=== PATIENT | female | born 1940 | race Caucasian/White ===

== ENCOUNTER 2021-02-03 10:01 | Emergency (ER) | payer MEDICARE, OTHER ==
[~2021-02-03] VITALS: Ht 160 cm; Wt 63.5 kg
[2021-02-03] MEDS ORDERED: ELIQUIS5 MG PO (11:22)
[2021-02-03] MEDS ORDERED: VITAMIN C500 M6 PO (11:23)
[2021-02-03] MEDS ORDERED: VITAMIN D3400 UNI2 PO (11:23)
[2021-02-03] MEDS ORDERED: VITAMIN B-122500 MCG SL (11:24)
[2021-02-03] MEDS ORDERED: FE TABS325 MG PO (11:25)
[2021-02-03] MEDS ORDERED: FOLIC ACID1 MG PO (11:26)
[2021-02-03] MEDS ORDERED: FUROSEMIDE20 MG PO (11:26)
[2021-02-03] MEDS ORDERED: PROTONIX40 M2 PO (11:27)
[2021-02-03] MEDS ORDERED: KAPSPARGO SPRIN25 MG PO (11:27)
[2021-02-03] MEDS ORDERED: POTASSIUM CHLO10 MEQ PO (11:28)
[2021-02-03] MEDS ORDERED: PYRIDOXINE25 MG PO (11:29)
[2021-02-03] MEDS ORDERED: CALCIUM600 M1 PO (11:30)
[2021-02-03] MEDS ORDERED: REMERON SOLTAB15 MG PO (11:31)
[2021-02-03] MEDS ORDERED: ULTRAM50 MG PO (11:32)
[2021-02-03 11:52] VITALS: BP 107/65
== END 2021-02-03 12:05 | disposition home or self-care (01) ==
LOC: ED 10:01
DX: S90.31XA Contusion of right foot, initial encounter (principal); S90.121A Contusion of right lesser toe(s) without damage to nail, initial encounter; S76.911A Strain of unspecified muscles, fascia and tendons at thigh level, right thigh, initial encounter; I48.91 Unspecified atrial fibrillation; K21.9 Gastro-esophageal reflux disease without esophagitis; W22.03XA Walked into furniture, initial encounter; Z86.14 Personal history of Methicillin resistant Staphylococcus aureus infection; Z98.84 Bariatric surgery status; Z96.651 Presence of right artificial knee joint; Z87.81 Personal history of (healed) traumatic fracture

== ENCOUNTER 2021-05-24 15:31 | Emergency (ER) | payer MEDICARE, OTHER ==
[2021-05-24] VITALS (29 sets, daily range): BP systolic 62–92; BP diastolic 15–55
[~2021-05-24] VITALS: Ht 160 cm; Wt 62.3 kg
[~2021-05-24 15:31] MED LIST: CALCIUM600 M1 PO; ELIQUIS5 MG PO; FE TABS325 MG PO; FOLIC ACID1 MG PO; FUROSEMIDE20 MG PO; KAPSPARGO SPRIN25 MG PO; POTASSIUM CHLO10 MEQ PO; PROTONIX40 M2 PO; PYRIDOXINE25 MG PO; REMERON SOLTAB15 MG PO; ULTRAM50 MG PO; VITAMIN B-122500 MCG SL; VITAMIN C500 M6 PO; VITAMIN D3400 UNI2 PO
[2021-05-24 18:40] LABS: BILIRUBIN, TOTAL 1.6 mg/dL (0.0-1.4); CREATININE 2.4 mg/dL (0.5-1.0); POTASSIUM 4.9 mmol/l (3.5-5.1)
[2021-05-24 18:44] LABS: INTERNATIONAL NORMALIZED RATIO 1.2 RATIO (0.7-1.3); PROTHROMBIN TIME 12.7 SECONDS (9.0-12.5)
[2021-05-24 20:03] LABS: C-REACTIVE PROTEIN 29.3 mg/dL (0-0.9)
[2021-05-24 20:11] LABS: HEMATOCRIT 20.9 % (37.0-47.0); IMMATURE GRANULOCYTES 32.1 % (0.0-5.0); MEAN CELL VOLUME 89.7 fL CALC (80.0-100.0); MEAN CORPUSCULAR HGB CONC 33.5 g/dL CAL (32.0-36.0); PLATELET COUNT 594 thou/uL (130-400); RED BLOOD COUNT 2.33 mill/uL (4.20-5.60); RED CELL DISTRI WIDTH 18.3 % (11.5-15.5)
[2021-05-24 20:12] LABS: BAND 13 % (0-8)
[2021-05-24 20:13] LABS: IMMATURE CELLS 18 %
[2021-05-24 20:14] LABS: MANUAL DIFFERENTIAL YES
[2021-05-25] VITALS (15 sets, daily range): BP systolic 74–101; BP diastolic 34–42
== END 2021-05-25 02:00 | disposition short-term general hospital (02) ==
LOC: ED 15:31
PROVIDERS: Nurse Practitioner
DX: M79.81 Nontraumatic hematoma of soft tissue (principal); M60.9 Myositis, unspecified; N17.9 Acute kidney failure, unspecified; D72.829 Elevated white blood cell count, unspecified; I11.0 Hypertensive heart disease with heart failure; I50.9 Heart failure, unspecified; K21.9 Gastro-esophageal reflux disease without esophagitis; I48.0 Paroxysmal atrial fibrillation; Z85.42 Personal history of malignant neoplasm of other parts of uterus; Z79.01 Long term (current) use of anticoagulants; Z98.84 Bariatric surgery status; Z86.14 Personal history of Methicillin resistant Staphylococcus aureus infection; Z87.81 Personal history of (healed) traumatic fracture

== ENCOUNTER 2021-06-12 10:10 | Emergency (ER) | payer MEDICARE, OTHER ==
[2021-06-12] VITALS (7 sets, daily range): BP systolic 105–118; BP diastolic 56–63
[~2021-06-12] VITALS: Ht 160 cm; Wt 69.3 kg
[2021-06-12 11:11] LABS: MEAN CORPUSCULAR HGB 29.9 pG CALC (26.0-32.0); MEAN CORPUSCULAR HGB CONC 29.2 g/dL CAL (32.0-36.0); PLATELET COUNT 602 thou/uL (130-400); RED BLOOD COUNT 3.51 mill/uL (4.20-5.60); RED CELL DISTRI WIDTH 23.9 % (11.5-15.5)
[2021-06-12 11:24] LABS: HEMATOCRIT 35.9 % (37.0-47.0); HEMOGLOBIN 10.5 g/dl (12.0-16.0); IMMATURE GRANULOCYTES 13.5 % (0.0-5.0); MEAN CELL VOLUME 102.3 fL CALC (80.0-100.0)
[2021-06-12 11:25] LABS: MANUAL DIFFERENTIAL YES
[2021-06-12 11:32] LABS: ALBUMIN 3.3 g/dL (3.2-5.0); ALKALINE PHOSPHATASE 96 u/l (38-126); CHLORIDE 107 mmol/l (95-108); SGOT/AST 52 u/l (9-36); SODIUM 140 mmol/l (137-146); TOTAL PROTEIN 6.5 g/dL (6.3-8.2)
[2021-06-12 11:49] LABS: ANION GAP 10 (6-22 (CALC)); BUN 13 mg/dL (8-23); BUN/CREATININE RATIO 19 (12-20 (CALC)); CARBON DIOXIDE 27 mmol/l (22-30); CREATININE 0.7 mg/dL (0.5-1.0); GFR > 60 ML/MIN (>=60 (CALC)); GFR FOR AFR.AMER. > 60 ML/MIN (>=60 (CALC)); POTASSIUM 3.9 mmol/l (3.5-5.1)
[2021-06-12 11:57] LABS: BAND 0 % (0-8)
[2021-06-12 11:58] LABS: PLATELET ESTIMATE MARKED INCREASE
== END 2021-06-12 17:14 | disposition short-term general hospital (02) ==
LOC: ED 10:10
PROVIDERS: Emergency Medicine
DX: M79.81 Nontraumatic hematoma of soft tissue (principal); D72.829 Elevated white blood cell count, unspecified